=== PATIENT | female | born 1975 | race Caucasian/White ===

== ENCOUNTER → 2024-03-10 14:08 | Outpatient (REF) | payer OTHER, SELFPAY | LOC: HWWDC 14:08 | PROVIDERS: ATTENDING PHYSICIAN Internal Medicine | DX: Z12.31 Encounter for screening mammogram for malignant neoplasm of breast (principal) | CPT/HCPCS: 77063; 77067 ==

== ENCOUNTER → 2024-04-14 08:15 | Outpatient (REF) | payer OTHER, SELFPAY | LOC: HWRAD 08:15 | PROVIDERS: ATTENDING PHYSICIAN Nurse Practitioner Family | DX: R22.1 Localized swelling, mass and lump, neck (principal) | CPT/HCPCS: 76536 ==